=== PATIENT | female | born 1955 | race Hispanic/Latino ===

== ENCOUNTER 2019-06-16 09:37 | Emergency (ER) | payer BC, SELFPAY ==
[2019-06-16] MEDS ORDERED: Clindamycin/D5W 900 mg/50 ml Premix Bag ONE (10:40)
[2019-06-16] MEDS ORDERED: Ketorolac Tromethamine 30 MG/ML VIAL ONE (10:40)
== END 2019-06-16 12:14 | disposition home or self-care (01) ==
LOC: ERS 09:37
DX: K04.7 Periapical abscess without sinus (principal); K12.2 Cellulitis and abscess of mouth; I10 Essential (primary) hypertension; Z87.891 Personal history of nicotine dependence; Z79.899 Other long term (current) drug therapy
CPT/HCPCS: 96365; 96375; J1885; J3490

== ENCOUNTER 2023-10-11 14:02 | Emergency (ER) | payer MEDICARE, SELFPAY ==
[~2023-10-11 14:02] MED LIST: Iopamidol-370 76% 500 ML MDV (1 ML CHARGE) ONE
[2023-10-11] MEDS ORDERED: Morphine 4 MG/ML VIAL ONE (14:56)
[2023-10-11] MEDS ORDERED: Ondansetron PF 4 MG/2 ML Vial ONE (14:56)
[2023-10-11 15:01] LABS: #Basophils Less than 0.03 10x3/uL (0.0-0.2); %Basophils 0.3 % (0.0-1.0); %Eosinophils 1.2 % (0.0-10.0); %Lymphocytes 26.5 % (21.0-51.0); %Monocytes 6.8 % (0.0-10.0); %Neutrophils 64.9 % (42.0-75.0); Hematocrit 37.5 % (36.0-47.0); Hemoglobin 12.4 g/dL (12.0-16.0); Mean Corpuscular HGB CONC 33.1 g/dL (32.0-36.0); Mean Corpuscular Hemoglobin 30.2 pg (27.0-31.0); Mean Corpuscular Volume 91.5 fL (78.0-98.0); Mean Platelet Volume 10.5 fL (7.4-10.4); Platelet Count 209 10x3/uL (130-400); RBC Distribution Width 12.9 % (11.5-14.5)
[2023-10-11 15:08] LABS: Bacteria/HPF None Seen HPF (None Seen); Bilirubin Negative (Negative); Blood, Urine Negative (Negative); CAUTI Indications for Culture Pelvic or flank pain; Clarity Clear (Clear); Glucose, Urine (Dipstick) Normal (Negative); Ketone, Urine Negative (Negative); Leukocyte Negative Leu/uL (Negative); Nitrite Negative (Negative); Protein, Urine (Dipstick) 10 mg/dL (Neg-Trace); RBC/HPF 0-3 HPF (0-3); Specific Gravity, Urine 1.023 (1.002-1.036); Squamous Epithelial 0-3 HPF (0-3); Urobilinogen Normal mg/dL (Less than 2); WBC/HPF 0-3 HPF (0-3); pH, Urine 5.5 (5.0-9.0)
[2023-10-11 15:10] LABS: Urine Culture Reflex No No
[2023-10-11 15:29] LABS: ALT (SGPT) 5 U/L (8-55); AST (SGOT) 14 U/L (5-34); Albumin 4.3 g/dL (3.4-4.8); Alkaline Phosphatase 71 U/L (40-110); Anion Gap 17 mmol/L (10-20); BUN (Urea Nitrogen) 37 mg/dL (9.8-20.1); Bilirubin, Total 0.4 mg/dL (0.2-1.2); Calc. Creatinine Clearance 0 mL/min (70-130); Calcium 10.3 mg/dL (7.8-10.44); Carbon Dioxide 23 mmol/L (23-31); Chloride 102 mmol/L (98-107); Estimated GFR 43; Globulin 3.5 g/dL (2.4-3.5); Glucose 119 mg/dL (80-115); Lipase 16 U/L (8-78); Potassium 3.8 mmol/L (3.5-5.1); Protein, Total 7.8 g/dL (5.8-8.1); Sodium 138 mmol/L (136-145)
== END 2023-10-11 19:07 | disposition home or self-care (01) ==
LOC: ERS 14:02
DX: R10.31 Right lower quadrant pain (principal); R10.2 Pelvic and perineal pain; I10 Essential (primary) hypertension; Z87.891 Personal history of nicotine dependence
CPT/HCPCS: 74177; 76830; 76856; 80053; 81001; 83690; 85025; 96374; 96375; 99284; J2270; J2405; Q9967

== ENCOUNTER 2024-12-21 18:30 | Emergency (ER) | payer MEDICARE ==
[2024-12-21] MEDS ORDERED: Ondansetron PF 4 MG/2 ML Vial ONE (19:49)
[2024-12-21] MEDS ORDERED: Pantoprazole 40 MG VIAL ONE (19:50)
[2024-12-21 21:09] LABS: #Basophils Less than 0.03 10x3/uL (0.0-0.2); #Eosinophils 0.05 10x3/uL (0.0-0.7); #Monocytes 0.31 10x3/uL (0.11-0.59); #Neutrophils 5.01 10x3/uL (1.40-6.50); %Basophils 0.3 % (0.0-1.0); %Eosinophils 0.8 % (0.0-10.0); %Lymphocytes 18.1 % (21.0-51.0); %Monocytes 4.7 % (0.0-10.0); %Neutrophils 75.5 % (42.0-75.0); Hematocrit 34.4 % (36.0-47.0); Hemoglobin 11.0 g/dL (12.0-16.0); Mean Corpuscular Hemoglobin 30.1 pg (27.0-31.0); Mean Corpuscular Volume 94.0 fL (78.0-98.0); Platelet Count 187 10x3/uL (130-400); Red Blood Cell (RBC) Count 3.66 mill/uL (4.20-5.40); White Blood Cell (WBC) Count 6.63 10x3/uL (4.8-10.8)
[2024-12-21 21:23] LABS: ALT (SGPT) 7 U/L (Less than 34); AST (SGOT) 14 U/L (11-34); Albumin 3.9 g/dL (3.1-4.5); Alkaline Phosphatase 73 U/L (40-110); Anion Gap 15 mmol/L (10-20); BUN (Urea Nitrogen) 26 mg/dL (9.8-20.1); Bilirubin, Total 0.2 mg/dL (0.3-1.2); Calc. Creatinine Clearance 0 mL/min (70-130); Calcium 9.3 mg/dL (7.8-10.44); Carbon Dioxide 23 mmol/L (23-31); Chloride 109 mmol/L (98-107); Globulin 3.0 g/dL (2.4-3.5); Glucose 156 mg/dL (80-115); Lipase 25 U/L (8-78); Potassium 3.8 mmol/L (3.5-5.1); Sodium 143 mmol/L (136-145)
== END 2024-12-21 23:22 | disposition home or self-care (01) ==
LOC: ERS 18:30
DX: K20.90 Esophagitis, unspecified without bleeding (principal); I10 Essential (primary) hypertension; Z87.891 Personal history of nicotine dependence; Z79.899 Other long term (current) drug therapy
CPT/HCPCS: 74177; 80053; 83690; 84484; 85025; 93005; J2270; J2405; J2470; Q9967; 36415; 96374; 96375